=== PATIENT | male | born 1950 | race Caucasian/White ===

== ENCOUNTER → 2017-01-20 | Outpatient (CLI) | payer OTHER, BC ==
[2017-01-20 09:28] LABS: BASOPHILS # (AUTO) 0.02 10*3/UL; BASOPHILS % (AUTO) 0.3 % (0-1); EOSINOPHILS % (AUTO) 1.6 % (0-8); HEMATOCRIT 36.6 % (42.0-52.0); HEMOGLOBIN 12.3 g/dL (14.0-18.0); LYMPHOCYTES # (AUTO) 2.23 10*3/uL; MEAN CORPUSCULAR HEMOGLOBIN 30.4 PG (27-31); MEAN CORPUSCULAR HGB CONC 33.6 g/dL (33-37); MEAN CORPUSCULAR VOLUME 90.4 FL (80-90); MEAN PLATELET VOLUME 9.9 FL (7.4-12.2); MONOCYTES % (AUTO) 9.5 % (5-15); NEUTROPHILS # (AUTO) 3.34 10*3/UL; NEUTROPHILS % (AUTO) 53.1 % (50-80); RED BLOOD COUNT 4.05 10^6/uL (4.70-6.10)
[2017-01-20 09:41] LABS: BUN/CREATININE RATIO 21.87 (6-20); CALCIUM 9.7 mg/dL (8.7-10.7); CHOL/HDL RATIO 3.07 RATIO (0-4.0); LDL CHOLESTEROL,CALCULATED 0.8 mg/dL; SERUM ALBUMIN 4.2 g/dL (3.5-4.8)
[2017-01-20 09:44] LABS: PLATELET MORPHOLOGY COMMENT NORMAL MORPHOLOGY (NORM); RBC MORPHOLOGY COMMENT NORMAL MORPHOLOGY (NORM); WBC MORPHOLOGY COMMENT NORMAL MORPHOLOGY (NORM)
[2017-01-20 09:57] LABS: HEMOGLOBIN A1C 6.26 % (4.2-6.0)
== END ==
LOC: LAB 09:06
PROVIDERS: ATTEND Family Medicine
DX: E11.9 Type 2 diabetes mellitus without complications (principal); Z79.4 Long term (current) use of insulin; I10 Essential (primary) hypertension; E78.5 Hyperlipidemia, unspecified; E55.9 Vitamin D deficiency, unspecified; D64.9 Anemia, unspecified; R10.11 Right upper quadrant pain
CPT/HCPCS: 36415; 80053; 80061; 82306; 83036; 85025; 99213; G0463

== ENCOUNTER → 2017-01-24 | Outpatient (CLI) | payer OTHER, BC | LOC: MMPC 11:11 | PROVIDERS: ATTEND Surgery | DX: R10.11 Right upper quadrant pain (principal); D64.9 Anemia, unspecified | CPT/HCPCS: 99212; G0463 ==

== ENCOUNTER → 2017-01-27 | Outpatient (CLI) | payer OTHER, BC | LOC: MMPC 10:00 | PROVIDERS: ATTEND Orthopaedic Surgery | DX: M75.41 Impingement syndrome of right shoulder (principal) | CPT/HCPCS: 20610 ×2; 99203; G0463; J0702 ==

== ENCOUNTER 2017-02-03 10:18 | Day surgery (SDC) | payer OTHER, BC ==
[2017-02-03 10:51] VITALS: TEMP 96.7
[2017-02-03] MEDS ORDERED: Lactated Ringers 1,000 ML PRIMARY IV ONE (11:40)
[2017-02-03] MEDS ORDERED: LIDOCAINE W/ SODIUM BICARB 0.5 ML SYR ONE (11:40)
--- NOTE | 2017-02-03 11:50 | GEN.OPNOTE ---
EGD / Colonoscopy Report Surgery Date: 02/03/17 Preoperative Diagnosis: Right upper quadrant abdominal pain. Mild anemia. Postoperative Diagnosis: Same. Antral ulcer. 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 Procedure: Esophagogastroduodenoscopy with biopsy. Surgeon: Gerson Davey MD Anesthesia Provider: Apurva Rangel CRNA Anesthesia Type: MAC Indications: Patient with episodic episodes of right upper quadrant abdominal pain. He had also developed a mild anemia. EGD Findings: Esophagus: [Normal] GE Junction : [Valenzuela's change. Irregular Z line. Linear ulceration.] Fundus : [Normal] Body : [Normal] Prepyloric : [Small ulcer] Small Intestine : [Normal] A lubricated flexible upper endoscope was inserted and passed through the esophagus and stomach into the duodenum. Duodenum and duodenal bulb were unremarkable. Pyloric channel was patent. There was a small antral ulceration. Biopsies were taken in the periphery. Hemostasis was assured. Random prepyloric biopsies were taken as well. Hemostasis was assured. The remainder of the stomach was unremarkable. Air was aspirated. The scope was withdrawn into the distal esophagus. There was 3-4 cm of what appeared to be Valenzuela's change with an irregular Z line. There is also a linear ulceration. Multiple biopsies were taken of the Valenzuela's change as well as the Z line area and ulcer. Hemostasis was assured. The scope was then withdrawn through the remainder of a normal-appearing esophagus and brought through the hypopharynx under suction and the procedure. Patient tolerated the procedure well without complication. He was taken to outpatient surgery in stable condition. We will start the patient on pantoprazole 40 mg by mouth daily. We'll call the biopsy results when available. Colonoscopy Findings: Prep : [] Cecum : [] Ascending : [] Transverse : [] Sigmoid : [] Rectum : [] Digital Rectal Exam : [] No colonoscopy was done this visit.
[2017-02-03 13:22] VITALS: RESP 14
== END 2017-02-03 12:12 | disposition home or self-care (01) ==
LOC: SDSC 10:18
PROVIDERS: ATTEND Surgery
DX: R10.11 Right upper quadrant pain (principal); D64.9 Anemia, unspecified; K25.9 Gastric ulcer, unspecified as acute or chronic, without hemorrhage or perforation
CPT/HCPCS: 43239; J2704; J7120

== ENCOUNTER → 2017-02-17 | Outpatient (CLI) | payer OTHER, BC | LOC: MMPC 10:00 | PROVIDERS: ATTEND Orthopaedic Surgery | DX: M19.011 Primary osteoarthritis, right shoulder (principal); M75.41 Impingement syndrome of right shoulder | CPT/HCPCS: 99213; G0463 ==

== ENCOUNTER → 2017-04-21 | Outpatient (CLI) | payer OTHER, BC ==
[2017-04-21 14:03] LABS: BASOPHILS # (AUTO) 0.02 10*3/UL; BASOPHILS % (AUTO) 0.3 % (0-1); EOSINOPHILS # (AUTO) 0.09 10*3/UL; EOSINOPHILS % (AUTO) 1.4 % (0-8); HEMATOCRIT 39.7 % (42.0-52.0); HEMOGLOBIN 13.4 g/dL (14.0-18.0); LYMPHOCYTES # (AUTO) 2.12 10*3/uL; MEAN CORPUSCULAR HEMOGLOBIN 30.1 PG (27-31); MEAN CORPUSCULAR HGB CONC 33.8 g/dL (33-37); MEAN CORPUSCULAR VOLUME 89.2 FL (80-90); MEAN PLATELET VOLUME 10.1 FL (7.4-12.2); MONOCYTES % (AUTO) 10.8 % (5-15); NEUTROPHILS # (AUTO) 3.57 10*3/UL; NEUTROPHILS % (AUTO) 54.7 % (50-80); RED BLOOD COUNT 4.45 10^6/uL (4.70-6.10)
[2017-04-21 14:04] LABS: PLATELET MORPHOLOGY COMMENT NORMAL MORPHOLOGY (NORM); RBC MORPHOLOGY COMMENT NORMAL MORPHOLOGY (NORM); WBC MORPHOLOGY COMMENT NORMAL MORPHOLOGY (NORM)
[2017-04-21 14:13] LABS: HEMOGLOBIN A1C 6.57 % (4.2-6.0)
[2017-04-21 14:58] LABS: BUN/CREATININE RATIO 17.85 (6-20); CHOL/HDL RATIO 2.94 RATIO (0-4.0); LDL CHOLESTEROL,CALCULATED 18.8 mg/dL; SERUM ALBUMIN 4.9 g/dL (3.5-4.8)
== END ==
LOC: LAB 13:51
PROVIDERS: ATTEND Family Medicine
DX: E11.9 Type 2 diabetes mellitus without complications (principal); Z79.4 Long term (current) use of insulin; D64.9 Anemia, unspecified; E78.5 Hyperlipidemia, unspecified; I10 Essential (primary) hypertension; E55.9 Vitamin D deficiency, unspecified
CPT/HCPCS: 36415; 80053; 80061; 82306; 83036; 85025